=== PATIENT | female | born 1945 | race Caucasian/White ===

== ENCOUNTER → 2018-11-05 | Outpatient (CLI) | payer MEDICARE, OTHER ==
--- NOTE | 2018-11-06 02:05 | REP ---
Clinical: Sprain. Technique: AP, lateral, flexion/extension, bilateral oblique, and open-mouth views of the cervical spine. Comparison: None. Findings: Posterior laminectomy and fixation at C3-4 along with cervical fusion and anterior fixation at C4-7. Alignment is maintained on flexion/extension. No acute fracture / compression injury. Moderate degenerative disc disease at C3-4 with endplate sclerosis and marginal spurring along with moderate/advanced degenerative change at C7-T1. Oblique views demonstrate patent neural foramen. Open mouth view demonstrates normal C1-C2 articulation and odontoid process. Impression: Postsurgical and degenerative changes as noted above. Electronically Signed by Kendall Melendez MD 11/06/2018 01:57 A
== END ==
LOC: M WUC 13:43
PROVIDERS: ATTEND Physician Assistant
DX: M25.78 Osteophyte, vertebrae (principal); Z98.1 Arthrodesis status

== ENCOUNTER 2024-11-28 13:02 | Observation (INO) | payer MEDICARE ==
[~2024-11-28] VITALS: Ht 162.6 cm; Wt 70.7 kg
[2024-11-28 13:53] LABS: BASO # 0.0 10^3/uL (0.0-0.2); BASO % 0.4 % (0.0-1.0); EOS # 0.1 10^3/uL (0.0-0.5); EOS % 1.1 % (0.0-3.0); LYMPH # 1.2 10^3/uL (1.5-5.0); LYMPH % 12.8 % (24.0-44.0); MONO # 1.0 10^3/uL (0.0-0.8); MONO % 10.5 % (2.0-8.0); NEUTROPHILS # 6.9 10^3/uL (1.5-8.5); NEUTROPHILS % 74.9 % (36.0-66.0); PLATELET COUNT, AUTOMATED 223 10^3/uL (150-450)
[2024-11-28 14:07] LABS: INR 0.94
[2024-11-28] MEDS ORDERED: ISOVUE-370 76% 100 ML VIAL As Ordered ONE (14:07)
[2024-11-28 14:26] LABS: CALCIUM LEVEL 10.8 MG/DL (8.3-10.6); CARBON DIOXIDE LEVEL 28.0 MMOL/L (20-31); CHLORIDE LEVEL 103.0 MMOL/L (98-107); CREATININE FOR GFR 1.21 MG/DL (0.55-1.30); GLOMERULAR FILTRATION RATE 46.2 (>39); POTASSIUM SERUM 4.5 MMOL/L (3.5-5.1); SODIUM LEVEL 142.0 MMOL/L (136-145)
[2024-11-28] MEDS ORDERED: OXYB-54 PO (15:35)
[2024-11-28] MEDS ORDERED: CENT1TAB PO (15:35)
[2024-11-28] MEDS ORDERED: SPIR-10 PO (15:35)
[2024-11-28] MEDS ORDERED: ATOR40TA75 PO (15:35)
[2024-11-28] MEDS ORDERED: MECL-86 PO (15:35)
[2024-11-28] MEDS ORDERED: OMEP-173 PO (15:35)
[2024-11-28] MEDS ORDERED: AMLO1TAB24 PO (15:35)
[2024-11-28] MEDS ORDERED: [UNRECOGNIZED DRUG - CODE] PO (15:36)
[2024-11-28] MEDS ORDERED: HOME MED LIST COMPLETE! XX SCH ×2 (16:50→23:45)
[2024-11-28] MEDS: CLOPIDOGREL 75 MG TAB PO ONE (17:20)
[2024-11-28 23:35] VITALS: BP 184/73; TEMP 98.1; O2SAT 93
[2024-11-29] VITALS (15 sets, daily range): BP systolic 143–168; BP diastolic 63–74; TEMP 97–98.7; O2SAT 87–97
[2024-11-29 00:56] LABS: BASO # 0.1 10^3/uL (0.0-0.2); BASO % 0.5 % (0.0-1.0); EOS # 0.2 10^3/uL (0.0-0.5); EOS % 1.8 % (0.0-3.0); LYMPH # 2.1 10^3/uL (1.5-5.0); LYMPH % 20.1 % (24.0-44.0); MONO # 1.3 10^3/uL (0.0-0.8); MONO % 12.6 % (2.0-8.0); NEUTROPHILS # 6.6 10^3/uL (1.5-8.5); NEUTROPHILS % 64.8 % (36.0-66.0); PLATELET COUNT, AUTOMATED 215 10^3/uL (150-450)
[2024-11-29 01:07] LABS: ESTIMATED AVERAGE GLUCOSE 117.0 MG/DL (60-110)
[2024-11-29 01:13] LABS: INR 0.99
[2024-11-29 01:22] LABS: CK-MB VALUE MASS 2.5 NG/ML (<3.6)
[2024-11-29 01:24] LABS: ALT/SGPT 26.0 U/L (7.0-40); AST/SGOT 22.0 U/L (<34); CALCIUM LEVEL 10.5 MG/DL (8.3-10.6); CARBON DIOXIDE LEVEL 28.0 MMOL/L (20-31); CHLORIDE LEVEL 104.0 MMOL/L (98-107); CHOLESTEROL LEVEL 179.0 MG/DL (<200); CHOLESTEROL RISK RATIO 3.04 (<5); CPK CREATINE PHOSPHOKINASE 158.0 U/L (34-145); CREATININE FOR GFR 1.28 MG/DL (0.55-1.30); GLOMERULAR FILTRATION RATE 43.2 (>39); LDL CHOLESTEROL 106.0 MG/DL (<100); MB/CK RELATIVE INDEX 1.58 (< OR =4); NON-HDL-C 120.2 MG/DL; POTASSIUM SERUM 4.3 MMOL/L (3.5-5.1); SODIUM LEVEL 143.0 MMOL/L (136-145); TRIGLYCERIDES LEVEL 71.0 MG/DL (<150)
[2024-11-29] MEDS: CLOPIDOGREL 75 MG TAB PO SCH (09:47)
[2024-11-29] MEDS ORDERED: CLOP75TA2 PO (12:40)
[2024-11-29] MEDS ORDERED: ASPI81TA26 PO (12:40)
[2024-11-29] MEDS ORDERED: ATOR80TA59 PO (12:44)
== END 2024-11-29 13:55 | disposition home or self-care (01) ==
LOC: M ED 13:02 → M ED INP 13:03 → UNDOADMOB 13:03 → M PCU 23:32
PROVIDERS: ADMIT Student in an Organized Health Care Education/Training Program; ATTEND Student in an Organized Health Care Education/Training Program
DX: I63.531 Cerebral infarction due to unspecified occlusion or stenosis of right posterior cerebral artery (principal); R94.31 Abnormal electrocardiogram [ECG] [EKG]; I44.7 Left bundle-branch block, unspecified; R01.1 Cardiac murmur, unspecified; I12.9 Hypertensive chronic kidney disease with stage 1 through stage 4 chronic kidney disease, or unspecified chronic kidney disease; G31.1 Senile degeneration of brain, not elsewhere classified; E78.5 Hyperlipidemia, unspecified; K21.9 Gastro-esophageal reflux disease without esophagitis; M51.26 Other intervertebral disc displacement, lumbar region; M48.00 Spinal stenosis, site unspecified; H81.4 Vertigo of central origin; N18.9 Chronic kidney disease, unspecified; R73.03 Prediabetes; N32.81 Overactive bladder; R20.0 Anesthesia of skin; R20.2 Paresthesia of skin; G45.0 Vertebro-basilar artery syndrome; Z86.73 Personal history of transient ischemic attack (TIA), and cerebral infarction without residual deficits; Z82.41 Family history of sudden cardiac death; Z83.2 Family history of diseases of the blood and blood-forming organs and certain disorders involving the immune mechanism; Z88.8 Allergy status to other drugs, medicaments and biological substances; Z79.899 Other long term (current) drug therapy
CPT/HCPCS: 36415; 70450; 70496; 70498; 70551; 71045; 80047; 80048; 80061; 80076; 82550; 82553; 83036; 84484; 85025; 85610; 85730; 86850; 86900; 86901; 93005; 93041; 94760; 97161; 99285; G0378; Q9967